=== PATIENT | male | born 1965 | race African-American/Black ===

== ENCOUNTER 2018-08-13 08:57 | Outpatient (CLI) | payer OTHER ==
[~2018-08-13] VITALS: Ht 188 cm; Wt 111.4 kg
--- NOTE | ~2018-08-13 | HEMODYNAMI ---
PATIENT:KADIE GERMAN MEDICAL RECORD: [id number] : 65 LOCATION:[facility] ADMISSION DATE: 08/13/18 Generatedon:08/13/201814:57 Patient name: KADIE GERMAN Patient #: [id number] SSN: : 1965 Date of study: 08/13/2018 Page: Of Hemodynamic Procedure Report Patient Data Patient Demographics Procedure consent was obtained First Name: KADIE Gender: Male Last Name: MONSERRAT : 1965 Middle Initial: D Age: 53 year(s) Patient #: [id number] Race: Black Additional ID: [id number] Contact details [address]: [address] [place] [address] State: [place] City: [place] Zip code: [address] Admission Admission Data Admission Date: 08/13/2018 Admission Time: 8:57 Procedure Procedure Types Cath Procedure Diagnostic Procedure LHC LHC w/Coronaries Procedure Description Procedure Date Procedure Date: 08/13/2018 Procedure Start Time: 14:46 Procedure End Time: 14:54 Procedure Staff Name Function Michael La MD Performing Physician Savannah Chinchilla RT Monitor Luz Gomez RT Scrub Jackie Lowery RN Nurse Indication Angina Procedure Data Cath Procedure Fluoroscopy Diagnostic fluoroscopy Total fluoroscopy Time: 1.3 time: 1.3 min min Diagnostic fluoroscopy Total fluoroscopy dose: dose: 1116 mGy 1116 mGy Contrast Material Contrast Material Type Amount (ml) Isovue 300 46 Entry Location Entry Primary Successful Side Size Upsize Upsize Entry Closure Yancey ccessful Closure Location (Fr) 1 (Fr) 2 (Fr) Remarks Device Remarks Radial Right 6 Fr Mechanical artery Short Compression Estimated blood loss: 5 ml Diagnostic catheters Device Type Used For End Catheter Placement DIAGNOSTIC Balko 110cm 5 Multi-vessel Fr catheter ([id number]) Angiography Procedure Complications No complications Procedure Medications Medication Administration Route Dosage Oxygen etCO2 Nasal cannula 2 l/min Lidocaine 2% added to field 20 Heparin Flush Bag added to field 2 bags (1000units/500ml NS) Radial Cocktail added to field 1 syringe (Verapomil 2mg/Nitro 400mcg/Heparin 1500units) Versed I.V. 1 mg Fentanyl I.V. 50 mcg Versed I.V. 2 mg Hemodynamics Rest Heart Rate: 74 (bpm) Pressure Samples Time Site Value (mmHg) Purpose Heart Use Rate(bpm) 14:49 LV 87/15,8 Snapshot 142 14:49 LV 115/19,17 Snapshot 61 14:50 AO 120/74(97) Pullback 53 14:50 LV 121/29,0 Pullback 53 Gradients Valve Time Site 1 Site 2 Mean SEP/DFP Peak To Heart Use (mmHg) (sec/min) Peak Rate (mmHg) (bpm) Aortic 14:50 LV AO 14 10 1 53 121/29,0 120/74(97) Calculations Valve P-P Mean Valve Index Valve Source Name Gradient Area Flow (cm2) Aortic 1 14 1 14 Snapshots Pre Cath Intra NCS Post Cath Vital Signs Time Heart Resp SPO2 etCO2 NIBP (mmHg) Rhythm Pain Sedation Rate (ipm) (%) (mmHg) Status Level (bpm) 14:42:59 88 23 97 31.4 141/80(110) NSR 0 (11) 10(A) , No pain 14:47:21 90 19 100 30.6 151/66(101) NSR 0 (11) 10(A) , No pain 14:51:37 91 17 96 30.7 129/69(110) NSR 0 (11) 10(A) , No pain 14:57:01 83 17 96 31.4 116/66(95) NSR 0 (11) 10(A) , No pain Medications Time Medication Route Dose Verified Delivered Reason Notes Effectiveness by by 14:42:38 Oxygen etCO2 2 l/min Michael Mejia used for Nasal Abhinav Lowery carton forming machine helper cannula 14:42:44 Lidocaine 2% added 20ml Michael Rodriguez for local [facility] MD MCDONALD 14:42:49 Heparin Flush added 2 bags Michael Rodriguez used for [facility] procedure (1000units/500ml field MD MCDONALD NS) 14:43:06 Radial Cocktail added 1 Michael Rodriguez for (Verapomil to [facility] vasodilation 2mg/Nitro field MD MCDONALD 400mcg/Heparin 1500units) 14:50:29 Versed I.V. 1 mg Michael Mejia for sedation [facility] Lowery RN, MD 14:50:35 Fentanyl I.V. 50 mcg Michael Mejia for sedation [facility] Davon Lowery RN, MD 14:50:39 Versed I.V. 2 mg Michael Mejia for sedation [facility] Davon Lowery RN, MD Procedure Log Time Note 14:22:21 Indication : Angina 14:22:27 Jackie Lowery RN sent for patient. Start room use. 14:22:28 Time tracking: Regular hours (M-F 7:00 - 5:00) 14:22:32 Plan of Care:Hemodynamics will remain stable., Cardiac rhythm will remain stable., Comfort level will be maintained., Respiratory function will remain adequate., Patient/ family verbilizes understanding of procedure., Procedure tolerated without complication., Recovers from procedure without complications.. 14:30:51 Patient received from ED to CCL 2 Alert and oriented. Tansferred to table in Supine position. 14:30:52 Warm blankets applied, and mauricio hugger turned on for patient comfort. 14:30:52 Correct patient and procedure confirmed by team. 14:30:54 Signed procedure consent form obtained from patient. 14:30:56 ECG and BP/O2 sat monitors applied to patient. 14:41:50 Baseline sample Acquired. 14:41:50 Vital chart was started 14:41:53 Rhythm: sinus rhythm 14:41:55 Full Disclosure recording started 14:41:58 H&P Date Dictated: 08/13/2018 New H&P dictated by physician.. 14:41:59 Pre-procedure instructions explained to patient. 14:41:59 Pre-op teaching completed and patient verbalized understanding. 14:42:00 Family in waiting room. 14:42:02 Patient NPO since Midnight. 14:42:03 Is the patient allergic to Iodine/contrast media? No. 14:42:04 Was the patient premedicated? No 14:42:05 Is patient on blood thinner?No 14:42:06 Patient diabetic? No. 14:42:13 Previous problem with sedation/anesthesia? Yes slow to wake 14:42:15 Snore? Yes 14:42:16 Sleep apnea? No 14:42:16 Deviated septum? No 14:42:17 Opens mouth fully? Yes 14:42:18 Sticks out tongue? Yes 14:42:21 Airway obstruction? Yes asthma 14:42:23 Dentures? No ? 14:42:27 Pre procedure: right dorsailis pedis pulse 2+ Normal; easily identifiable; not easily obliterated 14:42:28 Pre procedure: left dorsailis pedis pulse 2+ Normal; easily identifiable; not easily obliterated 14:42:31 Modified Dom's test Radial < 7 seconds 14:42:33 Patient pain scale 0/10 ?. 14:42:38 Oxygen 2 l/min etCO2 Nasal cannula was administered by Jackie Lowery RN; used for procedure; 14:42:38 IV patent on arrival in left forearm with 0.9% NaCl at [facility]. 14:42:40 Lab results completed and on chart. 14:42:44 Lidocaine 2% 20ml vial added to field was administered by Michael La MD; for local anesthetic; 14:42:44 Right Radial & Right Groin area was prepped with chlora-prep and draped in sterile fashion 14:42:44 Alarms reviewed by R. N. 14:42:45 Sharps counted by scrub and verified by R.N. 14:42:46 Physician arrived 14:42:47 --------ALL STOP TIME OUT------ 14:42:47 Final Timeout: patient, procedure, and site verified with staff and physician. All members of the team are in agreement. 14:42:49 Heparin Flush Bag (1000units/500ml NS) 2 bags added to field was administered by Michael La MD; used for procedure; 14:42:49 Right Radial & Right Groin site verified by team. 14:42:51 Physical assessment completed. ASA score P 2 - A patient with mild systemic disease as per Michael La MD. 14:42:55 Sedation plan: IV Moderate Sedation Medication:Versed, Fentanyl 14:42:57 Use device set Radial Dx or PCI 14:42:58 ACIST Syringe (99957) opened to sterile field. 14:42:59 Medline Cath Pack ([id number]) opened to sterile field. 14:42:59 Bag Decanter (2002S) opened to sterile field. 14:43:00 DIAGNOSTIC WIRE .035 260cm J wire (131023) opened to sterile field. 14:43:00 ACIST Hand Control (21685) opened to sterile field. 14:43:01 ACIST Manifold (04120) opened to sterile field. 14:43:02 Tegaderm 4 x 4 (1626W) opened to sterile field. 14:43:02 MBrace Wrist Support ([id number]) opened to sterile field. 14:43:03 SHEATH 6FR Slender (61-0828) opened to sterile field. 14:43:06 Radial Cocktail (Verapomil 2mg/Nitro 400mcg/Heparin 1500units) 1 syringe added to field was administered by Michael La MD; for vasodilation; 14:46:51 Procedure started. 14:46:58 Local anesthetic to right radial artery with Lidocaine 2% by Michael La MD.INITIAL ACCESS ONLY 14:47:09 A 6 Fr Short sheath was inserted into the Right Radial artery 14:47:43 A DIAGNOSTIC Balko 110cm 5 Fr catheter (260216) was advanced over the wire and used for Multi-vessel Angiography. 14:50:02 LV hemodynamics recorded. 14:50:04 LV gram done using WILKINSON 14:50:06 Injector settings: Ml/sec: 5, Volume: 15, 14:50:11 EF : 55 % 14:50:29 Versed 1 mg I.V. was administered by Jackie Lowery RN; for sedation; 14:50:34 LCA angiography performed. 14:50:35 Fentanyl 50 mcg I.V. was administered by Jackie Lowery RN; for sedation; 14:50:38 Injector settings: Ml/sec: 3, Volume: 6, 14:50:39 Versed 2 mg I.V. was administered by Jackie Lowery RN; for sedation; 14:51:31 Injector settings: Ml/sec: 3, Volume: 6, 14:51:39 RCA angiography performed. 14:51:41 Injector settings: Ml/sec: 3, Volume: 6, 14:52:00 Catheter removed. 14:52:03 TR BAND Standard ([id number]) opened to sterile field. 14:52:36 Sheath removed intact; hemostasis achieved with Mechanical Compression to the Right Radial artery. 14:52:38 Procedure ended.(Physican Out) 14:52:55 Fluoroscopy time 01.30 minutes. 14:53:01 Fluoroscopy dose: 1116 mGy 14:53:01 Flurop Dose total: 1116 14:53:05 Contrast amount:Isovue 300 46ml. 14:53:08 Sharps counted by scrub and verified by R.N. 14:53:10 TR band inflated with 9cc of air. 14:53:11 Insertion/operative site no bleeding no hematoma. 14:53:17 Post right radial artery:stable 14:53:31 Post Procedure Pulses reassessed and unchanged 14:53:34 Post procedure rhythm: unchanged. 14:53:36 Estimated blood loss: 5 ml 14:53:40 Post procedure instruction explained to patient.Patient verbalizes understanding. 14:53:40 Patient needs reinforcement of post procedure teaching. 14:53:53 Procedure and supply charges have been captured, reviewed, submitted and are correct. 14:54:00 Procedure Complication : No complications 14:54:02 Vital chart was stopped 14:54:02 See physician's report for complete and final results. 14:54:11 Report given to Pre/Post Procedure Room. 14:54:14 Patient transfered to Pre/Post Procedure Room with Stretcher. 14:54:15 Procedure ended. 14:54:15 Full Disclosure recording stopped 14:54:22 End room use (Document Last) Device Usage Item Name Manufacture Quantity Catalog Hospital Part Current Minimal Lot# / Number Charge Number Stock Stock Serial# Code ACIST Acist 1 06533 737033 638520 589136 20 Syringe Medical (04184) Systems Inc Medline Medline 1 [id number] 013357 26764 657422 5 Cath Pack ([id number]) Bag Microtek 1 2001S 837310 20279 810118 5 Decanter Medical Inc. () DIAGNOSTIC [facility] [place] 1 151802 542389 036909 198728 30 WIRE .035 260cm J wire (212874) ACIST Hand Acist 1 07379 326901 397503 605840 5 Control Medical (15937) Systems Inc ACIST Acist 1 78289 683333 245919 803767 5 Manifold Medical (15015) Systems Inc Tegaderm 4 3M 1 1626W 690416 933972 912446 5 x 4 (1626W) MBrace Advanced 1 140-0250-00 928762 33198 145871 5 Wrist Vascular Support Dynamics ([id number]) SHEATH 6FR Terumo 1 [id number] 089994 721100 884970 5 Slender (80-4865) DIAGNOSTIC Terumo 1 40-4408 489950 806948 764984 5 Balko 110cm 5 Fr catheter (561494) TR BAND Terumo 1 [id number] 561244 601805 255080 40 Standard ([id number]) Signature Audit [place] Stage Time Signature Unsigned Intra-Procedure 08/13/2018 Savannah Chincihlla 2:57:52 PM RT(R) Signatures Monitor : Savannah Chinchilla RT Signature : Date : Time : [place] [id number] [facility] [place] [address]
[~2018-08-13 08:57] MED LIST: CALAN120 MG PO; SINGULAIR10 MG PO; ZANTAC150 MG PO
[2018-08-13 08:58] VITALS: Ht 188 cm; Wt 111.4 kg
[2018-08-13] MEDS ORDERED: CALAN120 MG PO (09:30)
[2018-08-13 09:35] LABS: BASOPHILS 0.3 % (0-2); EOSINOPHILS 9.1 % (0-7); HEMATOCRIT 41.4 % (42.0-54.0); HEMOGLOBIN 14.1 g/dL (13.5-17.5); LYMPHOCYTES 42.3 % (15-50); MCH 30.9 pg (26.0-34.0); MCHC 34.1 g/dL (31.0-37.0); MCV 90.6 fL (80.0-100.0); MEAN PLATELET VOLUME 9.9 fL (7.4-10.4); MONOCYTES 7.7 % (2-11); NEUTROPHILS 40.6 % (40-80); PLATELET COUNT 172 10x3/uL (130-400); RBC 4.57 10x6/uL (4.20-6.10); RDW 12.2 % (11.5-14.5); WBC 3.5 10x3/uL (4.8-10.8)
[2018-08-13 09:56] LABS: ALBUMIN 3.8 g/dL (3.4-5.0); ALKALINE PHOSPHATASE 63 U/L (46-116); ALT (SGPT) 115 U/L (10-68); BILIRUBIN - TOTAL 0.76 mg/dL (0.2-1.3); CALC OSMOLALITY 278 mosm/kg (275-300); CARBON DIOXIDE 27.8 mmol/L (21.0-32.0); CHLORIDE - SERUM 104 mmol/L (98-107); GLUCOSE 89 mg/dL (74-106); POTASSIUM - SERUM 3.5 mmol/L (3.5-5.1); PROTEIN - SERUM 7.6 g/dL (6.4-8.2); SODIUM 141 mmol/L (136-145); UREA NITROGEN 11 mg/dL (7-18); eGFR NON AFRICAN AMERICAN 83 mL/min (90-120)
[2018-08-13 10:07] LABS: CKMB 28.6 U/L (0.0-3.6); PRO BNP 16 pg/mL (0-125); TROPONIN-I < 0.017 ng/mL (0.000-0.060)
[2018-08-13 10:08] LABS: CREATINE KINASE 3419 UL (21-232)
[2018-08-13 14:26] VITALS: BP 122/68
--- NOTE | 2018-08-13 15:20 | NUR ---
ROOM AIR WITH NO RESP DISTRESS. RIGHT WRIST TR BAND CDI, NO BLEEDING OR HEMATOMA NOTED. NO C/O PAIN OR NAUSEA. VSS. FAMILY AT BEDSIDE, CALL LIGHT WITHIN REACH.
--- NOTE | 2018-08-13 15:50 | NUR ---
RIGHT WRIST TR BAND CDI, NO BLEEDING OR HEMATOMA NOTED. SIPPING ON DRINK AND EATING SANDWICH WITH NO C/O NAUSEA. VSS. WILL CONTINUE TO MONITOR.
--- NOTE | 2018-08-13 16:05 | NUR ---
3CC OF AIR REMOVED FROM TR BAND WITH NO BLEEDING NOTED. VSS. WILL CONTINUE TO MONITOR CLOSELY.
--- NOTE | 2018-08-13 16:22 | NUR ---
3CC OF AIR REMOVED FROM TR BAND WITH NO BLEEDING NOTED.
--- NOTE | 2018-08-13 16:40 | NUR ---
LEFT PIV D/C'D WITH CATHETER INTACT, BAND AID TO SITE. UP TO BEDSIDE TO GET DRESSED.
--- NOTE | 2018-08-13 16:50 | NUR ---
REMAINING AIR REMOVED FROM TR BAND WITH NO BLEEDING NOTED. DRESSING PLACED TO SITE. DISCHARGE INSTRUCTIONS GIVEN, VERBALIZED UNDERSTANDING.
--- NOTE | 2018-08-13 17:00 | NUR ---
TAKEN OUT VIA WHEELCHAIR BY CATH BONING ROOM WORKER. LEFT FACILITY WITH FAMILY AND ALL PERSONAL BELONGINGS.
--- NOTE | 2018-08-16 13:30 | OP ---
PATIENT NAME: KADIE GERMAN MEDICAL RECORD: [id number] :65 LOCATION:[facility] ADMISSION DATE: SURGEON: CARL GOSS MD DATE OF OPERATION: 08/13/2018 PROCEDURE: Left heart catheterization, selective coronary angiography, right femoral artery approach. CATHETERS USED: [place] catheter and radial sheath. The procedure was well tolerated. The patient was returned to the mahoney. Sheath was removed. TR band was placed. FINDINGS: Left ventriculography in 30-degree WILKINSON view: Normal wall motion and normal systolic function. CORONARY ANATOMY: LEFT MAIN: Left main is free of disease. LAD: Free of disease in the diagonal system. CIRCUMFLEX: Free of disease in the marginal system. RIGHT CORONARY ARTERY: Dominant artery, free of disease. IMPRESSION: Normal LV systolic function. Normal coronary anatomy. TRANSINT:[id number] Voice Confirmation ID: [id number] DOCUMENT ID: [id number] CARL GOSS MD at 1330 CC: [id number] DICTATION DATE: 08/13/18 1602 WATER QUALITY TECHNICIAN: 08/13/18 1804 DEP CLI 08/13/18 [place] [address] [place] [address]
== END 2018-08-13 17:00 | disposition home or self-care (01) ==
LOC: D.ER 08:57 → D.CATH 08:57 → EDSTATUS 11:11 → D.CATH 17:00
PROVIDERS: Family Medicine
DX: R07.9 Chest pain, unspecified (principal); I10 Essential (primary) hypertension